=== PATIENT | female | born 1950 | race Hispanic/Latino ===

== ENCOUNTER 2017-06-16 15:07 | Emergency (ER) | payer MEDICARE, MEDICAID ==
[2017-06-16 15:07] VITALS: BMI 30.9
[2017-06-16 15:15] VITALS: RESP 18
--- NOTE | 2017-06-16 16:59 | ED PDOC ---
HPI: Head Injury Time Seen by Provider: 06/16/17 15:29 Chief Complaint (Nursing): Trauma History Per: Patient History/Exam Limitations: no limitations Injury Occurred (Timing): Just Before Arrival Onset/Duration Of Symptoms: Sudden Onset Patient States: Fell Striking Head Severity: Mild Loss Of Consciousness: No Additional History Per: Patient Additional Complaint(s): pt felt dizzy and fell back and struck head, pt states chronic dizziness due to low blood glucose. states goetz and left knee pain now no neck pain no cp or sob. Past Medical History Reviewed: Historical Data, Nursing Documentation, Vital Signs Vital Signs: Last Vital Signs Temp 98.3 F 06/16/17 15:13 Pulse 68 06/16/17 15:13 Resp 18 06/16/17 15:13 BP 136/62 06/16/17 15:13 Pulse Ox 98 06/16/17 15:13 - Medical History PMH: Anxiety, Arthritis, Asthma, Bipolar Disorder, Bronchitis, HTN, Hypercholesterolemia Denies: HIV, Chronic Kidney Disease - Surgical History Surgical History: Tonsillectomy - Family History Family History: States: Unknown Family Hx - Living Arrangements Living Arrangements: With Family - Social History Current smoker - smoking cessation education provided: No - Immunization History Hx Influenza Vaccination: Yes Hx Pneumococcal Vaccination: Yes (4 years ago) - Home Medications Home Medications: Ambulatory Orders Medication Instructions Recorded Albuterol HFA [Ventolin HFA 90 0.09 mg IH PRN PRN 07/04/14 mcg/actuation (8 g)] Aspirin 81 mg PO DAILY 07/04/14 Atorvastatin [Lipitor] 20 mg PO DAILY 07/04/14 Docusate Sodium 100 mg PO TID 07/04/14 Fluticasone/Salmeterol 100/50 1 dsk IH PRN PRN 07/04/14 [Advair Diskus 100/50] Gabapentin [Neurontin] 100 mg PO TID 07/04/14 Insulin Glargine,Hum.rec.anlog 100 unit SC PRN PRN 07/04/14 [Lantus] Linaclotide [Linzess] 145 mcg PO DAILY 07/04/14 Lisinopril 10 mg PO DAILY 07/04/14 Metformin HCl 1,000 mg PO BID 07/04/14 Sertraline [Zoloft] 50 mg PO DAILY 07/04/14 Tramadol Hydrochloride [Tramadol] 50 mg PO PRN PRN 07/04/14 - Allergies Allergies/Adverse Reactions: Allergies Allergy/AdvReac Type Severity Reaction Status Date / Time codeine Allergy DIZZINESS Verified 06/16/17 15:45 Review of Systems ROS Statement: Except As Marked, All Systems Reviewed And Found Negative Constitutional: Negative for: Fever, Chills Cardiovascular: Negative for: Chest Pain, Palpitations Respiratory: Negative for: Cough, Shortness of Breath Gastrointestinal: Negative for: Nausea, Vomiting, Abdominal Pain Musculoskeletal: Negative for: Neck Pain Neurological: Negative for: Weakness, Numbness Physical Exam - Reviewed Nursing Documentation Reviewed: Yes Vital Signs Reviewed: Yes - Physical Exam Appears: Positive for: Uncomfortable Head Exam: Positive for: ATRAUMATIC, NORMAL INSPECTION, NORMOCEPHALIC Eye Exam: Positive for: Normal appearance, EOMI, PERRL ENT: Positive for: Pharynx Is. Negative for: Nasal Congestion, Pharyngeal Erythema, Tonsillar Exudate, Tonsillar Swelling Neck: Positive for: Normal, Painless ROM, Supple. Negative for: Decreased ROM, Limited ROM, Trachea Midline, Pain On Movement Of Neck Cardiovascular/Chest: Positive for: Regular Rate, Rhythm, Chest Non Tender. Negative for: Edema, Gallop, Murmur, Bradycardia, Tachycardia Respiratory: Positive for: Normal Breath Sounds. Negative for: Decreased Breath Sounds, Accessory Muscle Use, Crackles, Rales, Rhonchi, Stridor, Wheezing , Respiratory Distress Pulses-Radial (L): 2+ Pulses-Radial (R): 2+ Gastrointestinal/Abdominal: Positive for: Normal Exam, Bowel Sounds, Soft. Negative for: Tenderness Back: Positive for: Normal Inspection. Negative for: L CVA Tenderness, R CVA Tenderness, Vertebral Tenderness Extremity: Positive for: Normal ROM, Swelling (right knee contusion no fx or dislocation). Negative for: Tenderness, Pedal Edema, Calf Tenderness, Deformity Neurologic/Psych: Positive for: Alert, senior mobile developer II-XII, Oriented, Mood/Affect (calm) , Cerebellar Tests. Negative for: Motor/Sensory Deficits, Aphasia, Facial Droop - Laboratory Results Result Diagrams: 06/16/17 17:09 06/16/17 17:09 - ECG ECG: Positive for: Interpreted By Me ECG Rhythm: Positive for: Normal QRS, Normal ST Segment, Sinus Bradycardia (57) . Negative for: ST/T Changes O2 Sat by Pulse Oximetry: 98 Pulse Ox Interpretation: Normal - Radiology X-Ray: Interpreted by [place] X-Ray Interpretation: No Acute Disease Medical Decision Making Medical Decision Making: PROCEDURE: CT HEAD WITHOUT CONTRAST. HISTORY: headache COMPARISON: None available. TECHNIQUE: Axial computed tomography images were obtained through the head/brain without intravenous contrast. Radiation dose: Total exam DLP = 825.44 mGy-cm. This CT exam was performed using one or more of the following dose reduction techniques: Automated exposure control, adjustment of the mA and/or kV according to patient size, and/or use of iterative reconstruction technique. FINDINGS: HEMORRHAGE: No intracranial hemorrhage. BRAIN: No mass effect or edema. Probable chronic lacunar infarcts within the right basal ganglia measuring up to 9 mm. The toribio-white matter differentiation appears otherwise intact. Please note that MRI with diffusion imaging is more sensitive in the detection of acute ischemic event. VENTRICLES: No hydrocephalus. CALVARIUM: Unremarkable. PARANASAL SINUSES: Unremarkable as visualized. No significant inflammatory changes. MASTOID AIR CELLS: Unremarkable as visualized. No inflammatory changes. OTHER FINDINGS: None. IMPRESSION: Probable chronic lacunar infarcts within the right basal ganglia measuring up to 9 mm. knee 3 views no fx or dislocation no sts Disposition - Clinical Impression Clinical Impression: Closed head injury - Patient ED Disposition Is Patient to be Admitted: No Counseled Patient/Family Regarding: Studies Performed, Diagnosis, Need For Followup, Rx Given - Disposition Referrals: [facility] [Outside] (2 to 3 days) Disposition: Routine/Home Disposition Time: 18:54 Condition: GOOD Instructions: Head Injury (ED), Knee Sprain (ED) Forms: [employer] (Slovak)
[2017-06-16 17:17] LABS: BASO % 0.7 % (0.0-2.0); EOS # 0.2 K/uL (0.0-0.7); EOS % 2.9 % (0.0-4.0); HEMATOCRIT 38.6 % (34.0-47.0); LYMPH # 1.3 K/uL (1.0-4.3); LYMPH % 19.2 % (20.0-40.0); MEAN CELL VOLUME 91.8 fl (81.0-99.0); MEAN CORPUSCULAR HEMOGLOBIN 30.4 pg (27.0-31.0); MEAN CORPUSCULAR HGB CONC 33.2 g/dL (33.0-37.0); MEAN PLATELET VOLUME 9.2 fl (7.2-11.7); MONO # 0.4 K/uL (0.0-0.8); MONO % 6.5 % (0.0-10.0); NEUT # 4.6 K/uL (1.8-7.0); NEUT % 70.7 % (50.0-75.0); RED CELL DISTRIBUTION WIDTH 12.9 % (11.5-14.5); WHITE BLOOD COUNT 6.6 K/uL (4.8-10.8)
[2017-06-16 17:29] LABS: ALB/GLOB RATIO 1.5 (1.0-2.1); ALKALINE PHOSPHATASE 98 U/L (38-126); ALT/SGPT 40 U/L (9-52); AST/SGOT 31 U/L (14-36); BILIRUBIN,TOTAL 0.5 mg/dl (0.2-1.3); BLOOD UREA NITROGEN 20 mg/dl (7-17); CALCIUM 9.8 mg/dL (8.4-10.2); CARBON DIOXIDE 31 mmol/L (22-30); CHLORIDE 103 mmol/L (98-107); GFR AFRICAN-AMERICAN > 60; GLUCOSE,RANDOM 112 mg/dL (65-105); POTASSIUM 4.5 MMOL/L (3.6-5.0); SODIUM 140 mmol/l (132-148)
--- NOTE | 2017-06-16 17:59 | CT ---
PROCEDURE: CT HEAD WITHOUT CONTRAST. HISTORY: headache COMPARISON: None available. TECHNIQUE: Axial computed tomography images were obtained through the head/brain without intravenous contrast. Radiation dose: Total exam DLP = 825.44 mGy-cm. This CT exam was performed using one or more of the following dose reduction techniques: Automated exposure control, adjustment of the mA and/or kV according to patient size, and/or use of iterative reconstruction technique. FINDINGS: HEMORRHAGE: No intracranial hemorrhage. BRAIN: No mass effect or edema. Probable chronic lacunar infarcts within the right basal ganglia measuring up to 9 mm. The toribio-white matter differentiation appears otherwise intact. Please note that MRI with diffusion imaging is more sensitive in the detection of acute ischemic event. VENTRICLES: No hydrocephalus. CALVARIUM: Unremarkable. PARANASAL SINUSES: Unremarkable as visualized. No significant inflammatory changes. MASTOID AIR CELLS: Unremarkable as visualized. No inflammatory changes. OTHER FINDINGS: None. IMPRESSION: Probable chronic lacunar infarcts within the right basal ganglia measuring up to 9 mm.
[2017-06-16 18:04] LABS: PARTIAL THROMBOPLASTIN TIME 35.9 Seconds (25.6-37.1)
--- NOTE | 2017-06-16 18:54 | RAD ---
PROCEDURE: CHEST RADIOGRAPH, 1 VIEW HISTORY: trauma COMPARISON: 09/09/2012 FINDINGS: LUNGS: Clear. PLEURA: No pneumothorax or pleural fluid seen. CARDIOVASCULAR: No radiographic findings to suggest acute or significant cardiovascular disease. OSSEOUS STRUCTURES: No significant abnormalities. VISUALIZED UPPER ABDOMEN: Normal. OTHER FINDINGS: None. IMPRESSION: No active disease. No acute/significant interval changes. Concordant results with the preliminary interpretation rendered by the emergency department physician procedure.
[2017-06-16 19:12] VITALS: BP 151/74; PULSE 53; TEMP 97.7; O2SAT 100
--- NOTE | 2017-06-17 08:53 | RAD ---
PROCEDURE: Right Knee Radiographs. HISTORY: trauma COMPARISON: None. FINDINGS: BONES: No fracture. JOINTS: Tricompartmental narrowing. Chondrocalcinosis. JOINT EFFUSION: None. OTHER FINDINGS: None. IMPRESSION: No demonstrated fracture dislocation. Mild degenerative changes.
--- NOTE | 2017-06-17 09:30 | CARD ---
APPROVED REPORT EKG Measurement Heart [id number] <Conclusion> Sinus bradycardia Cannot rule out Anterior infarct, age undetermined Abnormal ECG
== END 2017-06-16 19:14 | disposition home or self-care (01) ==
LOC: H.ER 15:07
DX: S09.90XA Unspecified injury of head, initial encounter (principal); M25.562 Pain in left knee; W19.XXXA Unspecified fall, initial encounter; Y92.89 Other specified places as the place of occurrence of the external cause; E78.00 Pure hypercholesterolemia, unspecified; F31.9 Bipolar disorder, unspecified; F41.9 Anxiety disorder, unspecified; I10 Essential (primary) hypertension; J45.909 Unspecified asthma, uncomplicated; Z79.4 Long term (current) use of insulin; Z79.82 Long term (current) use of aspirin

== ENCOUNTER 2018-09-16 12:54 | Inpatient (IN) | payer MEDICARE, MEDICAID ==
[2018-09-16 12:54] VITALS: BMI 30.9
--- NOTE | 2018-09-16 14:03 | ED PDOC ---
HPI: Abdomen Time Seen by Provider: 09/16/18 13:44 Chief Complaint (Nursing): Abdominal Pain Chief Complaint (Provider): Abdominal Pain History Per: Patient History/Exam Limitations: no limitations Onset/Duration Of Symptoms: Days (x3) Current Symptoms Are (Timing): Still Present Location Of Pain/Discomfort: Epigastric Associated Symptoms: Diarrhea. denies: Fever, Vomiting Additional Complaint(s): 68 year old female, with a history of diabetes, HTN, hypercholesterolemia, and "ruptured intestines" as per the patient, presents to the ED with epigastric abdominal pain radiating to the back associated with diarrhea x3 days. Denies vomiting, diarrhea, or blood in stool. Patient was referred to the ER by PMD. PMD: Vitor Valdovinos Past Medical History Reviewed: Historical Data, Nursing Documentation, Vital Signs Vital Signs: Last Vital Signs Temp 98.7 F 09/16/18 13:31 Pulse 69 09/16/18 13:31 Resp 20 09/16/18 13:31 BP 153/74 H 09/16/18 13:31 Pulse Ox 95 09/16/18 13:31 - Medical History PMH: Anxiety, Arthritis, Asthma, Bipolar Disorder, Bronchitis, Diabetes, HTN, Hypercholesterolemia Denies: HIV, Chronic Kidney Disease Other PMH: "ruptured intestines" - Surgical History Surgical History: Tonsillectomy - Family History Family History: States: Unknown Family Hx - Immunization History Hx Influenza Vaccination: Yes Hx Pneumococcal Vaccination: Yes (4 years ago) - Home Medications Home Medications: Ambulatory Orders Medication Instructions Recorded Albuterol HFA [Ventolin HFA 90 0.09 mg IH PRN PRN 07/04/14 mcg/actuation (8 g)] Aspirin 81 mg PO DAILY 07/04/14 Atorvastatin [Lipitor] 20 mg PO DAILY 07/04/14 Docusate Sodium 100 mg PO TID 07/04/14 Fluticasone/Salmeterol 100/50 1 dsk IH PRN PRN 07/04/14 [Advair Diskus 100/50] Gabapentin [Neurontin] 100 mg PO TID 07/04/14 Insulin Glargine,Hum.rec.anlog 100 unit SC PRN PRN 07/04/14 [Lantus] Linaclotide [Linzess] 145 mcg PO DAILY 07/04/14 Lisinopril 10 mg PO DAILY 07/04/14 Metformin HCl 1,000 mg PO BID 07/04/14 Sertraline [Zoloft] 50 mg PO DAILY 07/04/14 Tramadol Hydrochloride [Tramadol] 50 mg PO PRN PRN 07/04/14 - Allergies Allergies/Adverse Reactions: Allergies Allergy/AdvReac Type Severity Reaction Status Date / Time codeine Allergy DIZZINESS Verified 06/16/17 15:45 Review of Systems ROS Statement: Except As Marked, All Systems Reviewed And Found Negative Constitutional: Negative for: Fever Gastrointestinal: Positive for: Abdominal Pain (epigastric abdominal pain radiating to the back), Diarrhea. Negative for: Vomiting, Hematochezia Physical Exam - Reviewed Nursing Documentation Reviewed: Yes Vital Signs Reviewed: Yes - Physical Exam Appears: Positive for: No Acute Distress Head Exam: Positive for: ATRAUMATIC, NORMOCEPHALIC Skin: Positive for: Normal Color, Warm, Dry Eye Exam: Positive for: Normal appearance Neck: Positive for: Normal, Painless ROM Cardiovascular/Chest: Positive for: Regular Rate, Rhythm Respiratory: Positive for: Normal Breath Sounds. Negative for: Wheezing, Respiratory Distress Gastrointestinal/Abdominal: Positive for: Tenderness (epigastric area), D istended (mildly) Back: Positive for: Normal Inspection. Negative for: L CVA Tenderness, R CVA Tenderness Extremity: Positive for: Normal ROM Neurological/Psych: Positive for: Awake, Alert, Normal Tone - Laboratory Results Result Diagrams: 09/16/18 14:14 09/16/18 14:14 - ECG O2 Sat by Pulse Oximetry: 95 (RA) Pulse Ox Interpretation: Normal Medical Decision Making Medical Decision Making: Initial Impression: Epigastric pain Initial Plan: Will obtain CT abd/pelvis as well as lab work to r/o GI pathology. Scribe Attestation: Documented by Arun Palacios acting as a scribe for Christiano Almaraz MD. Provider Scribe Attestation: All medical record entries made by the Scribe were at my direction and personally dictated by me. I have reviewed the chart and agree that the record accurately reflects my personal performance of the history, physical exam, medical decision making, and the department course for this patient. I have also personally directed, reviewed, and agree with the discharge instructions and disposition. Disposition - Clinical Impression Clinical Impression: Colitis - Patient ED Disposition Is Patient to be Admitted: Yes - Disposition Disposition Time: 18:07 Condition: FAIR Forms: [employer] (Emirati) - Pt Status Changed To: Hospital Disposition Of: Observation - POA Present On Arrival: None
[2018-09-16 14:33] LABS: BASO % 0.4 % (0.0-2.0); EOS # 0.2 K/uL (0.0-0.7); LYMPH # 1.3 K/uL (1.0-4.3); LYMPH % 19.2 % (20.0-40.0); MEAN CELL VOLUME 90.4 fl (81.0-99.0); MEAN CORPUSCULAR HEMOGLOBIN 30.7 pg (27.0-31.0); MEAN PLATELET VOLUME 9.1 fl (7.2-11.7); MONO # 0.4 K/uL (0.0-0.8); MONO % 6.2 % (0.0-10.0); NEUT # 4.7 K/uL (1.8-7.0); NEUT % 71.2 % (50.0-75.0); NRBC % 0.1 % (0.0-0.0); RBC 3.91 Mil/uL (3.80-5.20); WHITE BLOOD COUNT 6.7 K/uL (4.8-10.8)
[2018-09-16 14:36] LABS: ALB/GLOB RATIO 1.4 (1.0-2.1); ALBUMIN 4.2 g/dL (3.5-5.0); ALT/SGPT 39 U/L (9-52); AST/SGOT 39 U/L (14-36); BLOOD UREA NITROGEN 19 mg/dl (7-17); CALCIUM 10.1 mg/dL (8.4-10.2); GFR NON-AFRICAN AMERICAN > 60; LIPASE 115 U/L (23-300)
[2018-09-16] MEDS ORDERED: Iohexol 300 100 ML IJ ONE (15:22)
[2018-09-16] MEDS ORDERED: Sodium Chloride 0.9% 100 ML ONE (15:22)
--- NOTE | 2018-09-16 16:20 | CT ---
Date of service: 09/16/2018 PROCEDURE: CT Abdomen and Pelvis with contrast HISTORY: Abd pain COMPARISON: Abdomen pelvis CT with contrast 391 02/21/2015. TECHNIQUE: Following the intravenous administration of iodinated contrast material, a CT examination of the abdomen and pelvis was performed from the domes of the diaphragms to the symphysis pubis with reformatted datasets provided in axial, sagittal and coronal planes. Oral contrast was not administered as per referring physician request. Contrast dose: Omnipaque 300, 95 cc Radiation dose: Total exam DLP = 809.87 mGy-cm. This CT exam was performed using one or more of the following dose reduction techniques: Automated exposure control, adjustment of the mA and/or kV according to patient size, and/or use of iterative reconstruction technique. FINDINGS: LOWER THORAX: Unremarkable. LIVER: Unremarkable. No gross lesion or ductal dilatation. GALLBLADDER AND BILE DUCTS: Unremarkable. PANCREAS: Unremarkable. No gross lesion or ductal dilatation. SPLEEN: Unremarkable. ADRENALS: Unremarkable. No mass. KIDNEYS AND URETERS: Unremarkable. No hydronephrosis. No solid mass. VASCULATURE: Non aneurysmal abdominal aorta. Inferior vena cava filter stable in appearance. No aortic atherosclerotic calcification or mural plaque present. BOWEL: No bowel obstruction identified. [id number] AP material scattered throughout various large-bowel segments with postoperative change again seen related to distal sigmoid colon and supraumbilical ventral abdominal hernia. A small ventral abdominal hernia is appreciated at the inferior abdomen with the neck measuring 2.5 cm containing only mesenteric fat. No pericolic or enteric reactive changes are appreciate suggests a segmental colitis or enteritis at this time grossly. Limited sigmoid diverticulosis without diverticulitis. APPENDIX: Not identified. No CT evidence of appendicitis. PERITONEUM: Unremarkable. No free fluid. No free air. LYMPH NODES: Unremarkable. No enlarged lymph nodes. BLADDER: Unremarkable. REPRODUCTIVE: Unremarkable. BONES: No acute fracture. OTHER FINDINGS: None. IMPRESSION: Postop change identified at the supraumbilical ventral abdominal wall as well as distal rectosigmoid. No definite acute abdominal or pelvic findings. Small infraumbilical ventral hernia identified containing only mesenteric fat. Limited sigmoid diverticulosis without diverticulitis.
[2018-09-16] MEDS ORDERED: metroNIDAZOLE 500mg/100ml NS 100 ML IVPB STA (18:03)
--- NOTE | 2018-09-16 20:21 | CARD ---
APPROVED REPORT Date of service: 09/16/2018 EKG Measurement Heart [id number] <Conclusion> Sinus bradycardia Low voltage QRS Borderline ECG
[2018-09-16] MEDS ORDERED: cefTRIAXone (Rocephin) 1 gm Inj ONE (21:21)
[2018-09-16] MEDS ORDERED: metroNIDAZOLE 500mg/100ml NS 100 ML IVPB ONE (23:25)
[2018-09-17] MEDS ORDERED: Pneumococcal 23-Valent Vaccine IM ONE (06:00)
[2018-09-17] MEDS ORDERED: Albuterol HFA 90 mcg/actuation (8 g) INH PRN (07:56)
[2018-09-17] MEDS: Enoxaparin 40 mg Syringe SC SCH (10:08)
[2018-09-17] MEDS: metroNIDAZOLE 500mg/100ml NS 100 ML IVPB SCH ×2 (10:20→16:48)
[2018-09-17] MEDS: Ciprofloxacin 400mg/200ml D5W 400 MG/200 ML BAG IVPB SCH ×2 (10:21→21:40)
[2018-09-17] MEDS: Insulin Regular 100 units/ml SC SCH ×3 (13:00→21:40)
[2018-09-17] MEDS: Cholecalciferol 1,000 INTLU TAB PO SCH (14:30)
[2018-09-18] MEDS: metroNIDAZOLE 500mg/100ml NS 100 ML IVPB SCH ×3 (00:43→16:11)
[2018-09-18 06:35] LABS: HEMOGLOBIN 11.9 g/dL (12.0-16.0); MEAN CELL VOLUME 91.2 fl (81.0-99.0); MEAN CORPUSCULAR HEMOGLOBIN 30.6 pg (27.0-31.0); MEAN CORPUSCULAR HGB CONC 33.6 g/dL (33.0-37.0); RBC 3.9 Mil/uL (3.80-5.20); RED CELL DISTRIBUTION WIDTH 12.7 % (11.5-14.5); WHITE BLOOD COUNT 8.8 K/uL (4.8-10.8)
[2018-09-18 06:57] LABS: ALB/GLOB RATIO 1.4 (1.0-2.1); ALBUMIN 3.8 g/dL (3.5-5.0); ALT/SGPT 33 U/L (9-52); AST/SGOT 38 U/L (14-36); BLOOD UREA NITROGEN 20 mg/dl (7-17); CALCIUM 9.8 mg/dL (8.4-10.2); GFR NON-AFRICAN AMERICAN 55
[2018-09-18] MEDS: Insulin Regular 100 units/ml SC SCH ×4 (07:33→22:32)
[2018-09-18] MEDS: Enoxaparin 40 mg Syringe SC SCH (08:24)
[2018-09-18] MEDS: Cholecalciferol 1,000 INTLU TAB PO SCH (08:25)
[2018-09-18] MEDS: Ciprofloxacin 400mg/200ml D5W 400 MG/200 ML BAG IVPB SCH ×2 (08:26→21:39)
--- NOTE | 2018-09-18 11:23 | PN ---
ADDENDUM DATE: 09/18/2018 EXTREMITIES: Did not reveal any acute findings other than patient with chronic arthritis. Vitor Wong MD DATE: 09/18/2018 SUBJECTIVE: The patient is seen and examined. Interim events noted. The patient remains in regular medical floor. Feels much better. Abdominal pain improved. Complains of arthritic pain. No nausea, vomiting or diarrhea. Tolerated food. PHYSICAL EXAMINATION: GENERAL: The patient is in no acute distress. VITAL SIGNS: Stable. HEART: S1 and S2. Normal and regular. LUNGS: Good bilateral air exchange. ABDOMEN: Soft and nontender. No organomegaly. No bruits. Bowel sounds are present and normal. No sign of acute abdomen. No guarding. No rigidity. No rebound. Abdominal findings is much improved since admission. Overall the patient is still improving. Plan as ordered. Vitor Wong MD [email or web address]
[2018-09-19] MEDS: metroNIDAZOLE 500mg/100ml NS 100 ML IVPB SCH ×2 (01:00→09:00)
[2018-09-19 08:01] VITALS: BP 122/72; PULSE 67; RESP 19; TEMP 97.7; O2SAT 95
[2018-09-19] MEDS: Insulin Regular 100 units/ml SC SCH ×2 (08:20→12:57)
--- NOTE | 2018-09-19 08:27 | HP ---
CHIEF COMPLAINT: Abdominal pain for 3 days. HISTORY OF PRESENT ILLNESS: This is a 68-year-old female known to us for diabetes, hypertension, elevated cholesterol, arthritis, asthma with history of colitis and also having abdominal pain for 3 days, which got worse. So, the patient came to the office yesterday and was found to have very tender abdomen. So, the patient was sent to the hospital and was admitted for further management. REVIEW OF SYSTEMS: Positive for abdominal pain. Review of systems otherwise is negative for headache, dizziness, syncope, loss of consciousness, chest pain, shortness of breath, nausea, vomiting, diarrhea, any new joint or extremity pain or any new neurological symptoms. Review of systems of all other organ system is unremarkable. PAST MEDICAL HISTORY: Significant for diabetes, hypertension, elevated cholesterol, asthma, anxiety. PAST SURGICAL HISTORY: Remarkable for intestinal surgery. PERSONAL HISTORY: The patient is currently nonsmoker, nondrinker. No substance abuse. MEDICATIONS: The patient is on multiple medications including tramadol, Zoloft, metformin, lisinopril, Lantus, Neurontin, Advair, Lipitor, Colace, Ventolin. ALLERGIES: THE PATIENT IS ALLERGIC TO CODEINE. FAMILY HISTORY: Noncontributory. PHYSICAL EXAMINATION: GENERAL: Well-built, well-nourished 68-year-old female, in no acute distress. VITAL SIGNS: Temperature 97.6, pulse 53, respirations 18, blood pressure 143/86. HEENT: Pupils reacting to light. No JVD. No thyromegaly. No lymphadenopathy. No nystagmus. Normocephalic, atraumatic. The patient is wearing gloves. HEART: S1 and S2, normal and regular. No significant murmur, gallop, or rub is heard. LUNGS: Good bilateral air exchange. No rales or rhonchi. ABDOMEN: Soft. There is minimal tenderness . No sign of acute abdomen. No guarding. No rigidity. No rebound. Bowel sounds are plus and normal. EXTREMITIES: No calf swelling. No tenderness. No acute ischemia. No edema. CENTRAL NERVOUS SYSTEM: The patient is alert, awake, oriented x3. There is no sign of any acute focal motor or sensory neurological deficits. DIAGNOSTIC DATA: Available diagnostic data reviewed. WBC 6.7, hemoglobin 12, hematocrit 35.3, platelets 215. Sodium 139, potassium 5.3, chloride 99, bicarb 34, BUN 19, creatinine 0.9. SMA-12 is unremarkable. CAT scan of the abdomen does not reveal any acute finding. ADMITTING IMPRESSION: Colitis, type 2 diabetes with hypoglycemia, elevated cholesterol, bronchial asthma, arthritis. PLAN: As ordered. Plan was discussed with the patient and emergency room physician. Vitor Wong MD
--- NOTE | 2018-09-19 08:35 | PN ---
DATE: 09/19/2018 SUBJECTIVE: The patient seen and examined. Interim events noted. The patient remains on regular medical floor. Feels much better. Abdominal pain is well tolerated. No chest pain or shortness of breath. PHYSICAL EXAMINATION: GENERAL: The patient is in no acute distress. VITAL SIGNS: Stable. HEART: S1 and S2, normal and regular. LUNGS: Good bilateral air exchange. ABDOMEN: Soft, nontender. No organomegaly. No fluid. No sign of acute abdomen. No guarding. No rigidity. No rebound. Bowel sounds are present and normal. ASSESSMENT AND PLAN: Overall, the patient is clinically stable and improved. Plan as ordered. Vitor Wong MD
[2018-09-19] MEDS: Enoxaparin 40 mg Syringe SC SCH (09:07)
[2018-09-19] MEDS: Cholecalciferol 1,000 INTLU TAB PO SCH (09:08)
[2018-09-19] MEDS: Ciprofloxacin 400mg/200ml D5W 400 MG/200 ML BAG IVPB SCH (10:15)
[2018-09-19 11:34] LABS: HEMOGLOBIN 11.7 g/dL (12.0-16.0); MEAN CELL VOLUME 91.7 fl (81.0-99.0); MEAN CORPUSCULAR HEMOGLOBIN 30.1 pg (27.0-31.0); MEAN CORPUSCULAR HGB CONC 32.8 g/dL (33.0-37.0); RBC 3.9 Mil/uL (3.80-5.20); RED CELL DISTRIBUTION WIDTH 12.9 % (11.5-14.5); WHITE BLOOD COUNT 6.3 K/uL (4.8-10.8)
[2018-09-19 11:47] LABS: BLOOD UREA NITROGEN 19 mg/dl (7-17); GFR NON-AFRICAN AMERICAN > 60
--- NOTE | 2018-09-21 12:12 | PQF ---
PROVIDER RESPONSE TEXT: Acute Colitis DMII Hyperkalemia REVIEWER QUERY TEXT: Documentation Clarification Your help is requested in clarifying the following clinical documentation, if you can please further specify in the medical record and discharge summary. History and Physical documented "diabetes with h ypoglycemia." The patient's Clinical Indicators include: 09/17 Glucose lab work: 118, 366, 125, 137 Query created by: Keya Alberto on 09/20/2018 4:37 PM Electronically signed by: Vitor Wong 09/21/2018 12:08 PM
--- NOTE | 2018-09-26 15:36 | CP.PCM.PCO ---
Assessment/Plan - Assessment and Plan (Free Text) Assessment: Final diagnosis Acute colitis -resolved Dm type 2 with hyperglycemia Hyperkalemia -resolved
== END 2018-09-19 14:40 | disposition home or self-care (01) | DRG 392 ==
LOC: H.ER 12:54 → H.ERHOLD 18:02 → H.MEDSURG1 09-17 01:04 → OBSVTOIN 09-18 16:46
PROVIDERS: ADMIT Internal Medicine; ATTEND Internal Medicine
PROC: 3E0234Z Introduction of Serum, Toxoid and Vaccine into Muscle, Percutaneous Approach (ICD-10-PCS; principal; 2018-09-18)
DX: K52.9 Noninfective gastroenteritis and colitis, unspecified (principal); I10 Essential (primary) hypertension; E78.00 Pure hypercholesterolemia, unspecified; Z79.82 Long term (current) use of aspirin; F41.9 Anxiety disorder, unspecified; J45.909 Unspecified asthma, uncomplicated; Z88.6 Allergy status to analgesic agent; M19.90 Unspecified osteoarthritis, unspecified site; F31.9 Bipolar disorder, unspecified; Z23 Encounter for immunization; Z79.84 Long term (current) use of oral hypoglycemic drugs; E11.65 Type 2 diabetes mellitus with hyperglycemia; E87.5 Hyperkalemia